=== PATIENT | female | born 1960 | race Caucasian/White ===

== ENCOUNTER 2021-03-11 08:22 | Outpatient (CLI) | payer BC, SELFPAY ==
--- NOTE | ~2021-03-11 | XR_ITS ---
EXAMINATION: XR barium swallow modified DATE: 03/11/2021 09:04 INDICATION: Dysphagia. TECHNIQUE: The patient was given barium-containing material of multiple consistencies to swallow by bola naik speech pathologist while I performed fluoroscopy. Dose-area product was 1.0-4 Gy-cm2. 1.8 minutes fluoroscopy time 1. Image FINDINGS: Oral Preparatory Stage: Oral Stage: Pharyngeal Phase: Cervical/Esophageal Stage: IMPRESSION: Modified esophagram findings as above. Please refer to the speech therapy report for [facility] recommendations. Reviewed, dictated and finalized at [facility]. Reviewed, dictated and finalized at [facility]. IMPRESSION: Modified esophagram findings as above. Please refer to the speech t herapy report for specific recommendations.
--- NOTE | 2021-03-11 09:29 | STOPEVAL ---
Thank you for referring Ginny Ortiz to [facility].? The patient was seen for an evaluation only. The results of the study are below. Please review, sign, date and return this DARY. I agree with and certify that the following plan of care is medically necessary. Referring Physician Date Admitting Provider: Attending Provider: Hussein PatriciaMD Referring Provider: EDISON Outpatient Evaluation Start: 03/11/21 09:01 Freq: Status: Active Protocol: Document 03/11/21 08:30 MJB (Rec: 03/11/21 09:29 [id number] [id number]) Therapy Assessment Status Assessment Status Assessment Status Evaluation Outpatient Past Medical History Past Medical History Source of Past Medical History Patient Neurological History Hx Neurological Disorders No Significant History Cardiovascular History Hx Cardiac Disorders No Significant History Respiratory History Hx Respiratory Disorders No Significant History Gastrointestinal History Hx Irritable Bowel Yes Genitourinary History Hx Genitourinary Disorders No Significant History Musculoskeletal History Hx Musculoskeletal Disorders No Significant History Hematological History Hx Hematological Disorders No Significant History Endocrine History Hx Endocrine Disorders No Significant History HEENT History Hx HEENT Disorders No Significant History Integumentary History Hx Skin Disorders No Significant History Reproductive History Hx Reproductive Disorders No Significant History Psychosocial History Hx Psychiatric Disorders No Significant History Pain History History of Any Previous or Ongoing No Significant History Instance of Pain Anesthesia History Hx Anesthesia Reactions No Significant History Pain Assessment Timing of Pain Assessment Timing of Pain Assessment Assessment Self Report Self Report Pain Level 0 Pain Score Pain Score 0: Self Report Modified Barium Swallow Evaluation Recent Swallowing History Reports Dysphagia Yes Onset of Dysphagia 1 month ago Duration of Dysphagia 1 month Other Related History IBS Other Factors Impacting Dysphagia None History of Pneumonia No Reported Difficult Consistencies Solids Intake Method Prior to Swallow Oral Evaluation Diet Prior to Swallow Evaluation Regular, Level 7 Liquid Consistency Prior to Swallow Thin (0) Evaluation Consistency Solid Consistency 5 mL Other Amount priti cracker Method of Presentation self fed bite from cracker Oral Preparatory Symptoms Within Functional Limits Oral Preparatory Phase Comments WFL Oral Phase Symptoms Within Functional Limits, Piecemeal Deglutit
== END 2021-03-11 08:23 | disposition home or self-care (01) ==
LOC: CHSIMG 08:25
PROVIDERS: PCP Family Medicine; Visit Provider Family Medicine
DX: R13.10 Dysphagia, unspecified (principal)
CPT/HCPCS: 92611

== ENCOUNTER 2021-10-05 13:39 | Outpatient (CLI) | payer BC, SELFPAY ==
[2021-10-05 13:50] LABS: Hematocrit 31.5 % (35.0-49.0); Hemoglobin 10.1 g/dL (12.0-15.0); Mean Corpuscular HGB Conc 32.1 g/dL (32.0-36.0); Mean Corpuscular Hemoglobin 28.9 pg (27.0-31.0); Mean Platelet Volume 8.8 fl (9.2-11.8); Platelet Count Result 299 K/mm3 (150-420); Red Cell Distribution Width 17.2 % (11.6-14.4); White Blood Count 6.2 K/mm3 (4.8-10.8)
[2021-10-05 14:32] LABS: Alanine Aminotransferase 31 U/L (14-59); Albumin Level 3.6 g/dL (3.4-5.0); Alkaline Phosphatase 54 U/L (46-116); Anion Gap 6 mmol/L (8-16); Aspartate Amino Transferase 42 U/L (15-37); Bilirubin,Total 0.3 mg/dL (0.00-1.00); Blood Urea Nitrogen 15 mg/dL (7-18); Calcium 9.2 mg/dL (8.5-10.1); Carbon Dioxide 27 mmol/L (21-32); Chloride 105 mmol/L (98-108); Cholesterol 279 mg/dL (0-200); Estimated Glomerular Filt Rate > 60; Ferritin 7 ng/mL (8-252); Glucose 97 mg/dL (70-99); HDL Direct 65 mg/dL (40-60); LDL Cholesterol Calculated 189 mg/dL (<130); Osmolality Calculated 286 mOsm/kg (285-295); Potassium 3.8 mmol/L (3.5-5.1); Sodium 138 mmol/L (136-145); Total Protein 7.2 g/dL (6.4-8.2); Triglycerides 126 mg/dL (0-150)
[2021-10-05 14:33] LABS: Thyroid Stimulating Hormone Reflex 1.76 u/IU/mL (0.36-3.74)
[2021-10-05 14:35] LABS: Iron 19 ug/dL (50-170); Percent Iron Saturation 5 % (12-57)
== END 2021-10-05 13:40 | disposition home or self-care (01) ==
LOC: CHSLAB 13:41
PROVIDERS: PCP Family Medicine; Visit Provider Family Medicine
DX: Z00.00 Encounter for general adult medical examination without abnormal findings (principal); Z86.2 Personal history of diseases of the blood and blood-forming organs and certain disorders involving the immune mechanism; E11.9 Type 2 diabetes mellitus without complications
CPT/HCPCS: 36415; 80053; 80061; 82728; 83540; 83550; 84443; 85027

== ENCOUNTER 2021-10-12 10:30 | Outpatient (CLI) | payer BC, SELFPAY ==
--- NOTE | ~2021-10-12 | MM_ITS ---
EXAMINATION: MM screening ralf BI w valeri HISTORY: Screening mammogram TECHNIQUE: Craniocaudal and mediolateral oblique 3-D tomosynthesis images were obtained and synthetic 2-D images were generated. CAD analysis was submitted and interpreted. COMPARISON: No prior mammogram is available for comparison at this institution. BREAST PARENCHYMAL COMPOSITION: The breasts are heterogeneously dense, which may obscure small masses . FINDINGS: There is a circumscribed 4 mm mass in the inner aspect of the lower inner right breast; jany gnostic right mammogram and right breast ultrasound examination are recommended. No other suspicious mass, architectural distortion, malignant calcification, skin thickening or retra ction of either breast is evident. IMPRESSION: 1. 4 mm mass in inner aspect of posterior lower inner quadrant of right breast 2. Diagnostic right mammogram and right breast ultrasound examination are recommended BI-RADS Category 0: Incomplete: Needs additional imaging evaluation. Reviewed, dictated and finalized at [facility]. IMPRESSION: 1. 4 mm mass in inner aspect of posterior lower inner quadrant of right breast 2. Diagnostic right mammogram and right breast ultrasound examination are recom mended BI-RADS Category 0: Incomplete: Needs additional imaging evaluation.
== END 2021-10-12 10:31 | disposition home or self-care (01) ==
LOC: CHSIMG 10:31
PROVIDERS: PCP Family Medicine; Visit Provider Family Medicine
DX: Z12.31 Encounter for screening mammogram for malignant neoplasm of breast (principal)
CPT/HCPCS: 77063; 77067

== ENCOUNTER 2021-10-20 08:57 | Outpatient (CLI) | payer BC, SELFPAY ==
--- NOTE | ~2021-10-20 | MMUS_ITS ---
EXAMINATION: MM diagnostic ralf RT w valeri, US breast RT complete HISTORY: Follow-up right breast asymmetry TECHNIQUE: Additional 3-D tomosynthesis images of the right breast were performed and synthetic 2-D i mages were generated. CAD analysis was submitted and interpreted. High resolution complete right anna st ultrasound was performed. COMPARISON: 10/12/2021 BREAST PARENCHYMAL COMPOSITION: The breasts are heterogenously dense, which may obscure small masses FINDINGS: MAMMOGRAPHIC FINDINGS: There are no discrete masses, calcifications or architectural distortion in the right breast to sugge st malignancy. ULTRASOUND: Complete US of all 4 quadrants of the the right and retroareolar region was reviewed. Normal heteroge neous echotexture without focal solid or cystic mass. IMPRESSION: 1. No evidence for malignancy in the right breast. 2. Routine yearly screening mammogram and regular clinical breast examination are recommended. BI-RADS Category 1: Negative Reviewed, dictated and finalized at [facility]. IMPRESSION: 1. No evidence for malignancy in the right breast. 2. Routine yearly screening mammogram and regular clinical breast examination a re recommended. BI-RADS Category 1: Negative
== END 2021-10-20 08:58 | disposition home or self-care (01) ==
LOC: CHSIMG 08:59
PROVIDERS: PCP Family Medicine; Visit Provider Family Medicine
DX: R92.8 Other abnormal and inconclusive findings on diagnostic imaging of breast (principal)
CPT/HCPCS: 76641; 77061; 77065; G0279